=== PATIENT | male | born 1980 ===

== ENCOUNTER 2020-03-20 07:48 | Day surgery (SDC) | payer OTHER | END 2020-03-20 10:55 | disposition home or self-care (01) | LOC: AMB-ENDOS 07:48 | PROVIDERS: ATTEND Surgery | DX: D12.5 Benign neoplasm of sigmoid colon (principal); Z12.11 Encounter for screening for malignant neoplasm of colon; Z20.822 Contact with and (suspected) exposure to COVID-19 ==